=== PATIENT | male | born 1980 | race Two or more races ===

== ENCOUNTER 2019-09-02 16:33 | Emergency (ER) | payer SELFPAY ==
[~2019-09-02] VITALS: Ht 182.9 cm; Wt 98.4 kg
--- NOTE | 2019-09-02 17:12 | PHYS DOC ---
Adult General Chief Complaint Chief Complaint: ABSCESS HPI HPI Patient is a 38 year old male patient who presents to the ED today with a cyst on the left tricep region that he has had for years. Patient states while at work a couple days ago he bumped the cyst. Denies any fever or drainage from the area. Review of Systems Review of Systems Constitutional: Denies fever or chills [] Musculoskeletal: Denies back pain or joint pain [] Integument: Reports cyst on the left tricep Neurologic: Denies headache, focal weakness or sensory changes [] All other systems were reviewed and found to be within normal limits, except as documented in this note. Physical Exam Physical Exam Constitutional: Well developed, well nourished, no acute distress, non-toxic appearance. [] Skin: Warm, dry, left tricep region well with an area of induration approximately 4 x 4 centimeters consistent with a cyst. The area is mobile, the area is not tender, no cellulitis over the region, no fluctuance no warmth. No s igns of infection. Neurovascular exam is intact to the left upper extremity. Back: No tenderness, no CVA tenderness. [] Extremities: No tenderness, no cyanosis, no clubbing, ROM intact, no edema. [] Neurologic: Alert and oriented X 3, normal motor function, normal sensory function, no focal deficits noted. [] Psychologic: Affect normal, judgement normal, mood normal. [] EKG EKG [] Radiology/Procedures Radiology/Procedures [] Course & Med Decision Making Course & Med Decision Making Pertinent Labs and Imaging studies reviewed. (See chart for details) This is a 38-year-old male patient who presents to the ED today with complaints of a cyst on the left tricep region, patient has had this cyst for years. He bumped it at work couple days ago, encourage him to ice and elevate the area. Tetanus is up-to-date. Provided manager lsw to follow up for cyst removal. Dragon Disclaimer Dragon Disclaimer This electronic medical record was generated, in whole or in part, using a voice recognition dictation system. Departure Departure Impression: Primary Impression: Cyst, dermoid, arm Disposition: 01 HOME, SELF-CARE Condition: STABLE Referrals: NO PCP (PCP) CATHERINE MÁRQUEZ MD follow up for the cyst Patient Instructions: Cyst Removal Additional Instructions: You have a cyst that needs to be followed up with a manager lsw. We gave you her contact information. Please follow up with her as soon as you can. Try to ice and elevate the affected area. Problem Qualifiers Primary Impression: Cyst, dermoid, arm Laterality: left Qualified Codes: D36.7 - Benign neoplasm of other specified sites MARY VILLALOBOS APRN Sep 02, 2019 17:12
[2019-09-02 17:15] VITALS: BP 152/86
== END 2019-09-02 17:47 | disposition home or self-care (01) ==
LOC: ER 16:33
DX: D36.7 Benign neoplasm of other specified sites (principal)
CPT/HCPCS: 99281